=== PATIENT | female | born 1995 | race Caucasian/White ===

== ENCOUNTER 2018-09-12 04:50 | Emergency (ER) | payer SELFPAY ==
--- NOTE | 2018-09-12 05:14 | EDPHYS ---
Physician Documentation [facility] Name: Karen Bynum Age: 23 yrs Sex: Female : 1995 Arrival Date: 09/12/2018 Time: 04:52 Bed 6 Private MD: ED Physician Dave Jeffers HPI: 09/12 05:10 This 23 yrs old Female presents to ER via Ambulatory with complaints of Ear tw4 Pain, Toothache, Nausea. 05:10 The patient presents with broken tooth/teeth. The problem is located in the lower left tw4 third molar. Onset: The symptoms/episode began/occurred 8 month(s) ago. Duration: The symptoms are continuous, and are steadily getting worse. Modifying factors: The symptoms are alleviated by. Severity of symptoms: At their worst the symptoms were moderate, in the emergency department the symptoms are unchanged. The patient has experienced a previous episode. 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 - Social history:: Smoking status: Patient/guardian denies using tobacco, never smoked. - Ebola Screening: : Patient negative for fever greater than or equal to 101.5 degrees Fahrenheit, and additional compatible Ebola Virus Disease symptoms Patient denies exposure to infectious person Patient denies travel to an Ebola-affected area in the 21 days before illness onset. ROS: 05:10 Constitutional: Negative for fever, chills, and weight loss. tw4 05:10 Respiratory: Negative for shortness of breath, cough, wheezing, and pleuritic chest pain, Abdomen/GI: Negative for abdominal pain, nausea, vomiting, diarrhea, and constipation, Back: Negative for injury and pain, MS/Extremity: Negative for injury and deformity, Skin: Negative for injury, rash, and discoloration. 05:10 ENT: Positive for dental pain. Exam: 05:10 Constitutional: This is a well developed, well nourished patient who is awake, alert, tw4 and in no acute distress. Head/Face: Normocephalic, atraumatic. 05:10 ENT: External ear(s): are unremarkable, Ear canal(s): are normal, TM's: Mouth: is normal, Dental exam: fractured teeth are noted, specifically the lower left third molar (#17). Vital Signs: 05:04 BP 144 / 92; Pulse 72; Resp 16; Temp 97.2(O); Pulse Ox 100% ; Weight 99.79 kg; Height 5 tl1 ft. 4 in. (162.56 cm); Pain 8; 05:04 Body Mass Index 37.76 (99.79 kg, 162.56 cm) tl1 MDM: 05:05 Patient medically screened. tw4 05:10 Differential diagnosis: dental caries, gingivitis, dental abscess. Data reviewed: vital tw4 signs, nurses notes. Counseling: I had a detailed discussion with the patient and/or guardian regarding: the historical points, exam findings, and any diagnostic results supporting the discharge/admit diagnosis. Special discussion: I discussed with the patient/guardian in detail that at this point there is no indication for admission to the hospital. It is understood, however, that if the symptoms persist or worsen the patient needs to return immediately for re-evaluation. Based on the history and exam findings, there is no indication for further emergent testing or inpatient evaluation. I discussed with the patient/guardian the need to see the oral maxillofacial surgeon for further evaluation of the symptoms. Administered Medications: 05:17 Drug: Motrin 800 mg Route: PO; tl1 05:24 Follow up: Response: No adverse reaction; No change in condition; Medication tl1 administered at discharge. Disposition: 09/12/18 05:13 Discharged to Home. Impression: Dental caries. - Condition is Stable. - Discharge Instructions: Dental Caries, Adult. - Prescriptions for Ibuprofen 800 mg Oral Tablet - take 1 tablet by ORAL route every 8 hours As needed take with food; 30 tablet. Tylenol- Codeine #3 300-30 mg Oral Tablet - take 2 tablet by ORAL route every 6 hours As needed; 6 tablet. Amoxicillin 500 mg Oral Capsule - take 1 capsule by ORAL route every 8 hours for 10 days; 30 tablet. - Medication Reconciliation Form, Thank You Letter, Antibiotic Education, Prescription Opioid Use form. - Follow up: Private Physician; When: Upon discharge from the Emergency Department; Reason: If symptoms return, Recheck today's complaints, Continuance of care. - Problem is new. - Symptoms have improved. Signatures: Kailee Lainez RN RN tl1 Dave Jeffers MD MD tw4 Corrections: (The following items were deleted from the chart) 05:25 05:13 09/12/2018 05:13 Discharged to Home. Impression: Dental caries. Condition is tl1 Stable. Forms are Medication Reconciliation Form, Thank You Letter, Antibiotic Education, Prescription Opioid Use. Follow up: Private Physician; When: Upon discharge from the Emergency Department; Reason: If symptoms return, Recheck today's complaints, Continuance of care. Problem is new. Symptoms have improved. tw4
--- NOTE | 2018-09-12 05:14 | ER ---
Nurse's Notes [facility] Name: Karen Bynum Age: 23 yrs Sex: Female : 1995 Arrival Date: 09/12/2018 Time: 04:52 Bed 6 Private MD: Diagnosis: Dental caries Presentation: 09/12 05:01 Presenting complaint: Patient states: My lower back molar on my left side has been tl1 hurting for months but the pain is becoming more severe and is now hurting my left ear and I feel nauseated. I don't have dental insurance so I haven't been to the dentist. Transition of care: patient was not received from another setting of care. Onset of symptoms is unknown. Risk Assessment: Do you want to hurt yourself or someone else? Patient reports no desire to harm self or others. Initial Sepsis Screen: Does the patient meet any 2 criteria? No. Patient's initial sepsis screen is negative. Does the patient have a suspected source of infection? No. Patient's initial sepsis screen is negative. Care prior to arrival: Medication(s) given: Tylenol, 650 mg. 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 - Social history:: Smoking status: Patient/guardian denies using tobacco, never smoked. - Ebola Screening: : Patient negative for fever greater than or equal to 101.5 degrees Fahrenheit, and additional compatible Ebola Virus Disease symptoms Patient denies exposure to infectious person Patient denies travel to an Ebola-affected area in the 21 days before illness onset. Screenin:06 Abuse screen: Denies threats or abuse. Denies injuries from another. Nutritional tl1 screening: No deficits noted. Tuberculosis screening: No symptoms or risk factors identified. Fall Risk None identified. Assessment: 05:05 General: Appears in no apparent distress. Behavior is calm, cooperative, appropriate tl1 for age. Pain: Complains of pain in lower left third molar Pain radiates to left ear Pain currently is 8 out of 10 on a pain scale. Quality of pain is described as aching, throbbing. Neuro: Level of Consciousness is awake, alert, obeys commands, Oriented to person, place, time, situation. Cardiovascular: Denies chest pain. Respiratory: Airway is patent Trachea midline Respiratory effort is even, unlabored, Breath sounds are clear bilaterally. GI: Bowel sounds present X 4 quads. Abd is soft and non tender X 4 quads. Reports nausea. : No signs and/or symptoms were reported regarding the genitourinary system. EENT: Reports pain in lower left third molar. Vital Signs: 05:04 BP 144 / 92; Pulse 72; Resp 16; Temp 97.2(O); Pulse Ox 100% ; Weight 99.79 kg; Height 5 tl1 ft. 4 in. (162.56 cm); Pain 8/10; 05:04 Body Mass Index 37.76 (99.79 kg, 162.56 cm) tl1 ED Course: 04:52 Patient arrived in ED. do 04:55 Kailee Lainez, RN is Primary Nurse. tl1 05:03 Triage completed. tl1 05:04 Arm band placed on right wrist. tl1 05:05 Dave Jeffers MD is Attending Physician. tw4 05:07 No provider procedures requiring assistance completed. Patient did not have IV access tl1 during this emergency room visit. 05:24 Patient has correct armband on for positive identification. Bed in low position. Call tl1 light in reach. Side rails up X 1. Administered Medications: 05:17 Drug: Motrin 800 mg Route: PO; tl1 05:24 Follow up: Response: No adverse reaction; No change in condition; Medication tl1 administered at discharge. Outcome: 05:13 Discharge ordered by . tw4 05:24 Discharged to home ambulatory. tl1 05:24 Condition: stable 05:24 Discharge instructions given to patient, Instructed on discharge instructions, follow up and referral plans. medication usage, Demonstrated understanding of instructions, follow-up care, medications, Prescriptions given X 3. 05:25 Patient left the ED. tl1 Signatures: Kailee Lainez RN RN tl1 Jade, Cara do Garrison, Dave, MD MD tw4
[2018-09-12] MEDS ORDERED: IBUPROFEN 400 MG TAB ONE (05:26)
[2018-09-12 05:35] VITALS: BP 144/92; TEMP 97.2; O2SAT 100
== END 2018-09-12 05:25 | disposition home or self-care (01) ==
LOC: ER 04:50
DX: K02.9 Dental caries, unspecified (principal)
CPT/HCPCS: 99283